=== PATIENT | female | born 2000 | race Caucasian/White ===

== ENCOUNTER 2019-08-15 13:52 | Emergency (ER) | payer OTHER ==
--- NOTE | 2019-08-15 14:18 | ER Document Report ---
ED General - General Chief Complaint: Other Stated Complaint: POSSIBLE COVID EXPOSURE Notes: Patient is a 19-year-old white female with no significant past medical history who presents to the emergency department with a chief complaint of suspected exposure to COVID-19. She reports that her was called by his boss and advised that he was potentially exposed to 2 individuals who are in quarantine for suspected COVID-19 and advised that he seek medical care if ill and otherwise quarantine. The patient works in a assisted living facility and she advised her employer of her 's current quarantine and her exposure to him and they recommended she come for COVID testing. Patient is asymptomatic. Denies any recent travel or other known sick contacts. States no one in the assisted living facility is ill or has been diagnosed with any COVID 19 illne sses. - Related Data Allergies/Adverse Reactions: Penicillins Allergy (Verified 08/15/19 14:07) Past Medical History - Social History Smoking Status: Unknown if Ever Smoked Family History: Reviewed & Not Pertinent Review of Systems - Review of Systems -: Yes All other systems reviewed and negative Physical Exam - Vital signs Vitals: Temp Pulse Resp BP Pulse Ox 97.9 F 83 16 123/69 100 08/15/19 14:02 08/15/19 14:02 08/15/19 14:02 08/15/19 14:02 08/15/19 14:02 - General General appearance: Appears well, Alert In distress: None - HEENT Head: Normocephalic, Atraumatic Eyes: Normal Conjunctiva: Normal Extraocular movements intact: Yes Pupils: PERRL Mucous membranes: Normal Neck: Supple - Respiratory Respiratory status: No respiratory distress Chest status: Nontender Breath sounds: Normal Chest palpation: Normal - Cardiovascular Rhythm: Regular Heart sounds: Normal auscultation - Extremities General upper extremity: Normal inspection, Nontender, Normal color, Normal ROM, Normal temperature General lower extremity: Normal inspection, Nontender, Normal color, Normal ROM, Normal temperature, Normal weight bearing. No: Delmi's sign - Neurological Neuro grossly intact: Yes Cognition: Normal Orientation: AAOx4 Equality Coma Scale Eye Opening: Spontaneous [place] Coma Scale Verbal: Oriented Equality Coma Scale Motor: Obeys Commands Equality Coma Scale Total: 15 Speech: Normal Sensory: Normal - Psychological Associated symptoms: Normal affect, Normal mood - Skin Skin Temperature: Warm Skin Moisture: Dry Skin Color: Normal Course - Re-evaluation Re-evalutation: 08/15/19 15:20 Patient swab for coronavirus. Expect results in the next 2 to 5 days. Patient will remain in isolation at home, self quarantine until a negative result or if a positive result is found she will follow-up via telephone with her provider for further instruction and continued quarantine. She is currently asymptomatic. I discussed with her the importance of close follow-up and advised she return here or any ER immediately with any new, persistent or worsening symptoms. She verbalized understood and agreed. She will be given a note for work to excuse her absence during her potential 14-day quarantine pending results. - Vital Signs Vital signs: Temp Pulse Resp BP Pulse Ox 97.9 F 83 16 123/69 100 08/15/19 14:02 08/15/19 14:02 08/15/19 14:02 08/15/19 14:02 08/15/19 14:02 Discharge - Discharge Clinical Impression: COVID-19 virus test result unknown Condition: Stable Disposition: HOME, SELF-CARE Instructions: COVID-19 Guidance for Persons Under Investigation Additional Instructions: Please self quarantine for the next 14 days or until you achieve a negative COVID-19 test. Please return here any ER immediately with any new, persistent or worsening symptoms. Forms: Return to Work
[2019-08-15 15:35] VITALS: BP 120/70
== END 2019-08-15 15:35 | disposition home or self-care (01) ==
LOC: ER 13:52
DX: Z20.828 Contact with and (suspected) exposure to other viral communicable diseases (principal); Z88.0 Allergy status to penicillin
CPT/HCPCS: 99281; 87635; C9803; 36415

== ENCOUNTER → 2019-12-31 | Outpatient (CLI) | payer OTHER ==
[2019-12-31 13:13] VITALS: BP 111/63
--- NOTE | 2019-12-31 13:13 | ER [facility] ASSESSMENT REPORT ---
Intake - In the Last 14 days Have you traveled outside [place]?: No Have you been in close contact with someone CONFIRMED: Yes Worked in Healthcare?: Yes - Symptoms Subjective Fever([place] feverish): No Chills: No Muscule Aches: No Runny Nose: Yes Sore Throat: No Cough (New or worsening chronic cough): No Shortness of breath: No Nausea or Vomiting: No Headache: No Abdominal Pain: No Diarrhea(3 or more loose stools in last 24 hours): No - Do you have any of the following Chronic lung disease: Asthma or emphysema or COPD: No Cystic Fibrosis: No Diabetes: No High Blood Pressure: No Cardiovascular Disease: No Chronic Kidney Disease: No Chronic Liver Disease: No Chronic blood disorder like Sickle Cell Disease: No Weak immune system due to disease or medication: No Neurologic condition that limits movement: No Developmental delay - Moderate to Severe: No Recent (within past 2 weeks) or current : No Morbid Obesity (>100 pounds over ideal weight): No - Objective Temperature: 98.3 F Pulse Rate: 80 Respiratory Rate: 14 Blood Pressure: 111/63 O2 Sat by Pulse Oximetry: 96 Objective: Given above, testing performed: If Testing Performed: Test Specimen Type Sent to General - General Information source: Patient Notes: Patient presents to the [facility] for screening for the coronavirus. 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 Patient reports runny nose and sneezing. - Related Data Allergies/Adverse Reactions: Penicillins Allergy (Verified 08/15/19 14:07) Past Medical History - General Information source: Patient - Social History Family History: Reviewed & Not Pertinent - Medical History Medical History: Negative Surgical Hx: Negative Physical Exam - Notes Notes: The patient was evaluated during the global Covid 19 pandemic, and that diagnosis was suspected/considered upon their initial presentation. Their evaluation, treatment and testing was consistent with current guidelines for patients who present with complaints or symptoms that may be related to Covid 19. Full physical exam could not be performed due to covid 19 isolation protocols. Constitutional: Nontoxic appearance, no acute distress Eyes: Nonicteric, extraocular movements intact, sclera clear Cardiovascular: Heart rate and rhythm regular, no JVD Respiratory: Breath sounds clear bilaterally, nonlabored breathing, no use of accessory muscles, no tachypnea Gastrointestinal: Abdomen not distended Muculoskeletal: Moves all extremities well Skin: Normal color Neuro: Awake alert oriented, normal speech Psych: Normal mood and affect Diagnostic Results Laboratory Results: Patient presents with upper respiratory symptoms worrisome for possible Covid 19. Patient does not have emergency worrying symptoms such as difficulty breathing, shortness of breath, chest pain, pressure, confusion or cyanosis. Patient appears suitable for discharge as they are not of an advanced age, do not have any chronic medical conditions such as diabetes, CAD, immune defici ency, chronic lung disease or chronic kidney disease. Patient's vital signs are stable and patient is nontoxic in appearance. Good return precautions have been discussed with patient, patient verbalized understanding and is agreeable with discharge plan of care at this time. Patient Education/Counseling Counseling/Education: Patient was provided with discharge information including: As a person under investigation for Covid 19, the [place] department of Health and Human Services, division of public health advises you to adhere to the following guidance until your test results are reported to you. If your test result is positive, you will receive additional information from your provider and your local health department at that time. Remain at home until you are cleared by the health provider or public health authorities. Keep a log of visitors to your home, notify any visitors to your home of your isolation status. If you plan to move to a new address or leave the [facility], notify the local health department in your County. Call your doctor or seek care if you have an urgent medical need. Before seeking medical care, call ahead to get instructions from the provider before arriving at the medical office clinic or hospital. Notify them that you are being tested for the virus that causes Covid 19 so that arrangements can be made, as necessary, to prevent transmission to others in the healthcare setting. Next, notify the local health department in your county. If a medical emergency arises and you need to call 911, inform the first responders that you are being tested for the virus that causes Covid 19. Next, notify the local health department in your county. [facility] Discharge - Discharge Clinical Impression: Encounter for screening laboratory testing for COVID-19 virus Condition: Stable Disposition: Home; Selfcare
== END ==
LOC: RDC 12:51
PROVIDERS: ATTEND Nurse Practitioner Family
DX: Z20.828 Contact with and (suspected) exposure to other viral communicable diseases (principal); R09.89 Other specified symptoms and signs involving the circulatory and respiratory systems
CPT/HCPCS: 87635; 99201; 99211; C9803